=== PATIENT | female | born 1980 | race Caucasian/White ===

== ENCOUNTER 2020-12-30 19:01 | Emergency (ER) | payer OTHER ==
[~2020-12-30 19:01] MED LIST: ATARAX25 MG PO; CLINDAMYCIN VG; MOTRIN600 MG PO; ONDANSETRON ODT4 MG SL; ROBAXIN500 MG PO
[2020-12-30] MEDS ORDERED: CORTAID28 GM TOP (19:35)
[2020-12-30] MEDS ORDERED: DOXYCYCLINE MO100 MG PO (19:35)
[2020-12-30] MEDS ORDERED: CLEOCIN300 MG PO (19:39)
== END 2020-12-30 19:48 | disposition home or self-care (01) ==
LOC: FER 19:01
DX: L03.312 Cellulitis of back [any part except buttock and flank] (principal)
CPT/HCPCS: 99283

== ENCOUNTER 2021-11-05 10:10 | Emergency (ER) | payer OTHER ==
[~2021-11-05] VITALS: Ht 167.6 cm; Wt 85.7 kg
[~2021-11-05 10:10] MED LIST changes: +CLEOCIN300 MG PO; +CORTAID28 GM TOP; +DOXYCYCLINE MO100 MG PO
[2021-11-05] MEDS ORDERED: MOTRIN600 MG PO (14:00)
== END 2021-11-05 14:30 | disposition home or self-care (01) ==
LOC: FER 10:10
DX: S86.911A Strain of unspecified muscle(s) and tendon(s) at lower leg level, right leg, initial encounter (principal); Z88.1 Allergy status to other antibiotic agents; Z88.5 Allergy status to narcotic agent; Z88.6 Allergy status to analgesic agent; Z88.8 Allergy status to other drugs, medicaments and biological substances; X50.1XXA Overexertion from prolonged static or awkward postures, initial encounter; Y92.009 Unspecified place in unspecified non-institutional (private) residence as the place of occurrence of the external cause
CPT/HCPCS: 73560

== ENCOUNTER 2022-01-01 04:58 | Emergency (ER) | payer OTHER ==
[2022-01-01 07:41] LABS: ALBUMIN 3.8 g/dL (3.4-5.0); BILIRUBIN - TOTAL 0.5 mg/dL (0.2-1.0); BUN/CREAT RATIO (CALC) 16.5 RATIO; CREATININE 0.79 mg/dL (0.51-0.95); GLOBULIN (CALCULATION) 3.3 g/dL; POTASSIUM 3.5 mmol/L (3.5-5.1); TOTAL PROTEIN 7.1 g/dL (6.4-8.2)
[2022-01-01 07:53] LABS: BASOPHIL 0.3 % (0-2); EOSINOPHIL 2.6 % (0-5); HCT 38.2 % (37.0-47.0); HGB 12.8 g/dl (12.5-16.0); LYMPHOCYTE 22.1 % (15-48); MCHC 33.5 g/dL (32.0-36.0); MCV 89.7 fL (78.0-100.0); MONOCYTE 4.3 % (0-12); MPV 9.5 fL (6.0-9.5); NEUTROPHIL 70.4 % (41-80); NRBC 0; PLT 305 K/uL (150-400); RBC 4.26 M/uL (4.20-5.40); RDW 12.6 % (11.5-14.0); WBC 9.7 K/uL (4.0-10.5)
== END 2022-01-01 08:20 | disposition home or self-care (01) ==
LOC: FER 04:58
PROVIDERS: Internal Medicine
DX: M54.50 Low back pain, unspecified (principal); Z88.5 Allergy status to narcotic agent; Z88.8 Allergy status to other drugs, medicaments and biological substances; Z91.011 Allergy to milk products; Z28.310 Unvaccinated for COVID-19
CPT/HCPCS: 36415; 72128; 72131; 80053; 83690; 84145; 85025; 96372; J1100; J1170